=== PATIENT | male | born 1990 | race Caucasian/White ===

== ENCOUNTER 2017-12-18 13:48 | Emergency (ER) | payer SELFPAY ==
[~2017-12-18] VITALS: Ht 180.3 cm; Wt 65.8 kg
[2017-12-18] MEDS ORDERED: SEROQUEL100 MG PO (13:59)
[2017-12-18] MEDS ORDERED: GABAPENTIN300 MG PO (13:59)
== END 2017-12-18 14:05 | disposition home or self-care (01) ==
LOC: ED 13:48
DX: M25.572 Pain in left ankle and joints of left foot (principal); F17.200 Nicotine dependence, unspecified, uncomplicated; X50.9XXA Other and unspecified overexertion or strenuous movements or postures, initial encounter

== ENCOUNTER 2018-01-16 18:15 | Emergency (ER) | payer OTHER ==
[~2018-01-16] VITALS: Ht 180.3 cm; Wt 65.8 kg
[~2018-01-16 18:15] MED LIST: GABAPENTIN300 MG PO; SEROQUEL100 MG PO
[2018-01-16] MEDS ORDERED: VENTOLIN HFA18 GM INH (18:32)
[2018-01-16] MEDS ORDERED: ADDERALL 30 MG30 MG PO (18:35)
== END 2018-01-16 21:46 | disposition home or self-care (01) ==
LOC: ED 18:15
DX: F41.9 Anxiety disorder, unspecified (principal); R06.4 Hyperventilation; F32.9 Major depressive disorder, single episode, unspecified; R45.851 Suicidal ideations; J45.909 Unspecified asthma, uncomplicated; F31.9 Bipolar disorder, unspecified; F17.200 Nicotine dependence, unspecified, uncomplicated; Z88.0 Allergy status to penicillin; Z79.899 Other long term (current) drug therapy
CPT/HCPCS: 80053; 85025; 96361; 96374; 96376; 99283; J2060; J7030

== ENCOUNTER 2018-06-06 16:56 | Emergency (ER) | payer OTHER ==
[~2018-06-06] VITALS: Ht 180.3 cm; Wt 65.8 kg
[~2018-06-06 16:56] MED LIST changes: +ADDERALL 30 MG30 MG PO; +VENTOLIN HFA18 GM INH
[2018-06-06] MEDS ORDERED: RANITIDINE HCL300 MG PO (17:14)
[2018-06-06] MEDS ORDERED: LATUDA60 MG PO (17:14)
[2018-06-06] MEDS ORDERED: LAMOTRIGINE100 MG PO (17:14)
[2018-06-06] MEDS ORDERED: CLONIDINE HCL0.1 MG PO (17:14)
[2018-06-06] MEDS ORDERED: FLOVENT HFA12 G1 INH (17:15)
[2018-06-06] MEDS ORDERED: FLUTICASONE PRO16 GM NAS (17:15)
== END 2018-06-06 19:17 | disposition short-term general hospital (02) ==
LOC: ED 16:56
DX: Z00.8 Encounter for other general examination (principal); F17.200 Nicotine dependence, unspecified, uncomplicated; Z88.0 Allergy status to penicillin; Z79.899 Other long term (current) drug therapy
CPT/HCPCS: 80053; 80176; 81001; 84443; 85025; 99284; G0480

== ENCOUNTER 2018-11-21 18:01 | Inpatient (IN) | payer OTHER ==
[~2018-11-21] VITALS: Ht 180.3 cm; Wt 68.0 kg
[~2018-11-21 18:01] MED LIST changes: +CLONIDINE HCL0.1 MG PO; +FLOVENT HFA12 G1 INH; +FLUTICASONE PRO16 GM NAS; +LAMOTRIGINE100 MG PO; +LATUDA60 MG PO; +RANITIDINE HCL300 MG PO
--- OUTSIDE RECORDS SUMMARY | 2018-11-21 18:04 | XMS ---
PreManage Notification: JÚNIOR MATTHEW Security Oxygen System Tester Events No recent Security Events currently on file CRITERIA MET - VANEP CARE PROVIDERS Paulo Pastor Current PHONE: Unknown Teressa has no Care Guidelines for this patient. ELauro VISIT COUNT (12 MO.) 4 [facility] TOTAL 4 NOTE: Visits indicate total known visits. ED/UCC VISIT TRACKING (12 MO.) 11/21/2018 18:02 [facility] [place] TYPE: Emergency COMPLAINT: - RIGHT KNEE PAIN 06/06/2018 16:57 [facility] [place] TYPE: Emergency COMPLAINT: - MEDICAL CLEARANCE DIAGNOSES: - Nicotine dependence, unspecified, uncomplicated - Encounter for other general examination - Other superintendent container terminal (current) drug therapy - Allergy status to penicillin 01/16/2018 18:15 [facility] [place] TYPE: Emergency COMPLAINT: - SOB DIAGNOSES: - Hyperventilation - Other superintendent container terminal (current) drug therapy - Suicidal ideations - Nicotine dependence, unspecified, uncomplicated - Shortness of breath - Major depressive disorder, single episode, unspecified - Unspecified asthma, uncomplicated - Anxiety disorder, unspecified - Bipolar disorder, unspecified - Allergy status to penicillin 12/18/2017 13:[address] [facility] [place] TYPE: Emergency COMPLAINT: - L ANKLE PAIN/INJURY/MSE TO CLINIC DIAGNOSES: - Other and unspecified overexertion or strenuous movements or postures, initial encounter - Nicotine dependence, unspecified, uncomplicated - OTHER AND UNSPECIFIED OVREXRTN OR STRNOUS MOVE/PST - Pain in left ankle and joints of left foot INPATIENT VISIT TRACKING (12 MO.) No inpatient visits to display in this time frame [email or web address]
--- NOTE | 2018-11-21 22:00 | NUR ---
PT ARRIVED TO THE FLOOR, AOX4, APPROPRIATE, VISITING WITH STAFF, VSS, NO C/O SOB/CP, ON RA, PT RATES PAIN 3/10 AT THIS TIME STATING "IT'S NOT BAD", PT'S LS MOSTLY CLEAR ON RIGHT SIDE, SOME WHEEZES NOTED THROUGHOUT LEFT SIDE, PT HAS COURSE NONPRODUCTIVE COUGH, PT ENCOURAGED TO CDB, REDNESS NOTED ON PT'S RIGHT KNEE, WARMTH NOTED WELL, PT STATES PAIN IS LOCATED MOSTLY ON LATERAL SIDE OF RIGHT KNEE, REDNESS NOTED ABOVE KNEE FROM MID THIGH TO LOWER WINTERS, REDDENED AREA ALSO NOTED ON BACK OF PT'S LEFT ANKLE WELL, PT GIVEN PRN TORADOL PER EMAR WELL SCHEDULED MEDS, TOLERATED WELL, NO REQUESTS AT THIS TIME, CALL LIGHT WITHIN REACH. FALL PRECAUTIONS IN PLACE. IV FLUIDS INFUSING PER EMAR WNL.
--- NOTE | 2018-11-21 23:00 | NUR ---
PT RESTING IN BED, NO REQUESTS AT THIS TIME, CALL LIGHT WITHIN REACH, IV FLUIDS INFUSING PER EMAR WNL, PT STATES HE FEELS WARM, T: 98.6, TEMP DECREASED IN ROOM, CALL LIGHT WITHIN REACH. FALL PRECAUTIONS IN PLACE.
--- NOTE | 2018-11-22 01:11 | NUR ---
PT RESTING IN BED, PT DENIES PAIN, STATES HE HAS BEEN SLEEPING, IV FLUIDS INFUSING PER EMAR WNL, DENIES NEEDS AT THIS TIME, CALL LIGHT WITHIN REACH. FALL PRECAUTIONS IN PLACE.
--- NOTE | 2018-11-22 04:11 | NUR ---
SCHEDULED MEDS ADMINISTERED, PT GIVEN WARM BLANKET PER PT'S REQUEST, NO FURTHER NEEDS AT THIS TIME, DENIES PAIN, DENIES NAUSEA, CALL LIGHT WITHIN REACH, FALL PRECAUTIONS IN PLACE.
--- NOTE | 2018-11-22 04:41 | NUR ---
CALL LIGHT ANSWERED, PT C/O 12/11 PAIN STATING "IT COMES AND GOES" PT DESCRIBES IT THROBBING IN HIS RIGHT KNEE AND OTHER JOINTS, PT GIVEN PRN PAIN MEDICATION PER EMAR, PT ALSO GIVEN WARM BLANKET PER REQUEST. PT C/O SOB AND DIFFICULTY WITH TAKING A DEEP BREATH, REQUESTING A PRN NEB TX, RT CALLED, ON THE WAY TO DELIVER NEB TX, PT'S LS WHEEZY THROUGHOUT ESPECIALLY LEFT SIDE/BASES. RR NORMAL, NONPRODUCTIVE COUGH NOTED. PT DENIES FURTHER NEEDS, IV FLUIDS INFUSING PER EMAR WNL, CALL LIGHT WITHIN REACH.
--- NOTE | 2018-11-22 05:12 | NUR ---
PT AOX4 THIS SHIFT, APPROPRIATE, PT'S VSS, AFEBRILE, NO C/O NAUSEA THIS SHIFT, PT WAS GIVEN PRN TORADOL X2 THIS SHIFT FOR PAIN RELATED TO RIGHT KNEE, REDNESS REMAINS UNCHANGED WELL WARMTH, PT CALLS APPROPRIATLEY, IV FLUIDS INFUSING PER EMAR WNL, SBA,
--- NOTE | 2018-11-22 06:12 | NUR ---
VITALS AND I&OS DONE AND CHARTED. GARBAGES EMPTIED. BEDSIDE TABLE AND CALL LIGHT IN REACH. FRESH ICE WATER GIVEN.
--- NOTE | 2018-11-22 06:17 | NUR ---
PT RESTING IN BED, EYES CLOSED, BREATHS EVEN, IV FLUIDS INFUSING PER EMAR WNL, NO REQUESTS AT THIS TIME, CALL LIGHT WITHIN REACH.
--- NOTE | 2018-11-22 07:20 | NUR ---
PT RESTING SUPINE IN BED, EYES CLOSED AND RESPIRATIONS EVEN AND UNLABORED. CALL LIGHT AND H20 IN REACH. BEDSIDE REPORT RECEIVED FROM SIMEON FAIRBANKS.
[2018-11-22] MEDS ORDERED: DEXTROAMP-AMPHE30 MG PO (09:00)
[2018-11-22] MEDS ORDERED: LAMOTRIGINE150 MG PO (09:02)
[2018-11-22] MEDS ORDERED: QUETIAPINE FUM300 MG PO (09:14)
[2018-11-22] MEDS ORDERED: MULTI VITAMIN1 EACH PO (10:00)
--- NOTE | 2018-11-22 10:00 | NUR ---
MED REC COMPLETE
--- NOTE | 2018-11-22 12:15 | NUR ---
PT RESTING IN FOWLERS POSITION IN BED, RECEIVING NEB TX FROM RT. PT DENIES PAIN OR NEEDS AT THIS TIME. CALL LIGHT, LUNCH TRAY AND H2O IN REACH. FAMILY AT BEDSIDE.
--- NOTE | 2018-11-22 15:05 | NUR ---
PT RESTING SUPINE IN BED, WATCHING TV AND VISITING WITH FAMILY. CALL LIGHT AND H20 IN REACH. ASSESSMENT COMPLETED. PT [id number] WITH 7 UP AND FRESH ICE TO RIGHT KNEE PER GENE GUZMÁN. PT DENIES FURTHER NEEDS. SWELLING AND REDDNESS TO RIGHT KNEE APPEARS TO BE DECREASED FROM AM ASSESSMENT AND PT STATES HE IS FEELING BETTER OVER ALL. CMS INTACT TO RIGHT FOOT.
--- NOTE | 2018-11-22 15:59 | NUR ---
PT IS EXPECTING TO RETURN HOME UPON DC.
--- NOTE | 2018-11-22 18:54 | NUR ---
PATIENT WAS ABLE TO SHOWER ON HIS OWN THIS DRIVER JUST SET UP HIS SHOWER. HIS MOM BRAUGHT IN SOME CLOTHES TO WEAR. A WARM BLANKET WAS PROVIDED.
--- NOTE | 2018-11-22 19:10 | NUR ---
SHIFT REPORT RECEIVED FROM DAYSHIFT SIMEON MICHELE. PT RESTING IN BED AND PLAYING ON COMPUTER, NO SIGNS OF DISTRESS NOTED. BOARD UPDATED AND PT DENIES FURTHER NEEDS. CALL LIGHT IN REACH.
--- NOTE | 2018-11-22 19:35 | NUR ---
SCHEDULED VANCO INFUSING PER MD ORDERS. IV SITE WNL, FLUSHES WELL, BLOOD RETURN NOTED. EDUCATION FOR VANCO INFILTRATION PROVIDED, PT VERBALIZES UNDERSTANDING. CALL LIGHT IN REACH. RT IN ROOM WITH PT.
--- NOTE | 2018-11-22 21:00 | NUR ---
ASSESSMENT COMPLETE. SCHEDULED MEDS GIVEN WITH SCHEDULED IV ABX (SEE EMAR). PT A/OX4, RATES PAIN 1/10 WHEN COUGHING, DESCRIBES TOLERABLE. IV SITE PATENT, BLOOD RETURN NOTED. PT DENIES NEEDS, CALL LIGHT IN REACH.
--- NOTE | 2018-11-22 21:03 | NUR ---
VITALS AND I&OS DONE AND CHARTED. FRESH ICE WATER GIVEN. BEDSIDE TABLE AND CALL LIGHT IN REACH. PT NEEDS NOTHING MORE AT THIS TIME.
--- NOTE | 2018-11-22 22:30 | NUR ---
SCHEDULED IV ABX INFUSING (SEE EMAR). IV SITE WNL, PATENT WITH NOTED BLOOD RETURN. PT RESTING IN BED, RR WNL. NO SIGNS OF DISTRESS NOTED. CALL LIGHT IN REACH.
--- NOTE | 2018-11-22 23:30 | NUR ---
IV ABX INFUSION COMPLETE, PT SALINE LOCKED AT THIS TIME. PT RESTING IN BED, EYES CLOSED, RR WNL. CALL LIGHT IN REACH.
--- NOTE | 2018-11-23 01:35 | NUR ---
PT RESTING IN BED, RR WNL. NO DISTRESS NOTED. EYES CLOSED. CALL LIGHT IN REACH.
--- NOTE | 2018-11-23 02:22 | NUR ---
NOTIFIED BY HOTEL YARDPERSON DECEMBER OF ORAL TEMP OF 100.0. PT REPORTS "FEELING WARM". EXCESS BLANKETS REMOVED, PRN TYLENOL GIVEN. PT DOES NOT WANT TO REMOVE SWEATER/SWEAT PANTS AT THIS TIME. PT'S TEMP NOT ABOVE MD PARAMTERS, WILL MONITOR AND NOTIFY IF NEEDED. NO FURTHER NEEDS, CALL LIGHT IN REACH.
--- NOTE | 2018-11-23 02:36 | NUR ---
VITALS AND I&OS DONE AND CHARTED. FRESH ICE WATER GIVEN. INFORMED HIS RN LARA OF TEMP. BEDSIDE TABLE AND CALL LIGHT IN REACH.
--- NOTE | 2018-11-23 03:30 | NUR ---
ASSESSMENT COMPLETE, NO NEW CONCERNS. PT A/OX4, DENIES PAIN. ORAL TEMP RESULT OF 98.7. SCHEDULED IV VANCO INFUSING, SITE WNL. PT DENIES FURTHER NEEDS, CALL LIGHT IN REACH.
--- NOTE | 2018-11-23 04:48 | NUR ---
PT A/OX3, PAIN WELL CONTROLLED WITH PRN TYLENOL. VSS, PT ON 2LNC, DENIES SOB. PT ALEN LIFT AT BASELINE. TURN Q2H AND PRN, REDDENED COCCYX, BLANCHABLE. PT INCONTINENT, REGULAR SOFT DIET. NO NAUSEA THIS SHIFT. PT IS A FEEDER. PT IS VERY [place]IN[place] AND [place] TRIBES AND SLOW TO SPEAK. PT REQUESTED EMESIS BAG MULTIPLE TIMES TO SPIT CLEAR SPUTUM. DOES NOT USE CALL LIGHT, YELLS OUT FOR ASSISTANCE.
--- NOTE | 2018-11-23 05:20 | NUR ---
SPOKE TO EMMIE IN TELEPHARMACY REGARDING PT'S AZITHROMYCIN INFUSION. THIS RN NOTICED THAT A PORTION OF THE 2100 SCHEDULED INFUSION DID NOT FULLY INFUSE. PER TELEPHARMACY, AZITHROMYCIN IS STABLE FOR 24 HRS AND THERE ARE NO CONTRAINDICTIONS TO COMPLETE THE REMAINING INFUSION PER NOR ARE THERE CONTRAINDICTIONS BETWEEN THE TIME FRAME OF THE REMAINING INFUSION AND THE NEXT SCHEDULED INFUSION. DR HENDERSON MADE AWARE PER PERSONAL MESSAGE.
--- NOTE | 2018-11-23 06:17 | NUR ---
VITALS AND I&OS DONE AND CHARTED. FRESH ICE WATER GIVEN. BEDSIDE TABLE AND CALL LIGHT IN REACH.
--- NOTE | 2018-11-23 07:10 | NUR ---
PT RESTING ON LEFT LATERAL SIDE IN BED, EYES CLOSED AND RESPIRATIONS EVEN AND UNLABORED. CALL LIGHT AND H2O IN REACH. PT APPEARS TO BE SLEEPING COMFORTABLY. BEDSIDE REPORT RECEIVED FROM SIMEON BERMUDEZ.
--- NOTE | 2018-11-23 07:21 | NUR ---
SPOKE TO AIDAN IN PHARMACY REGARDING PT'S VANCO INFUSION. APPROX 50-55MLS OF THE 0 VANCO DOSE DID NOT INFUSE. PER AIDAN, PT RECEIVED APPROX 800 OF THE 1,000 MG. PER AIDAN, SHE CAN TAKE THIS INTO ACCOUNT FOR THE PT'S SCHEDULED [address] HENDERSON MADE AWARE, NO NEW NEW ORDERS.
--- NOTE | 2018-11-23 09:59 | NUR ---
PATIENT RESTING IN BED. MOM IN ROOM. VITAL SIGNS AND I&O DONE. CALL LIGHT WITHIN REACH. NO OTHER NEEDS AT THIS TIME
--- NOTE | 2018-11-23 11:55 | NUR ---
PT SITTING UP IN BED VISITING WITH FAMILY. PT STATES PAIN IS TOLERABLE TO RIGHT KNEE. PT REQUESTED AND RECEIVED 7 UP. PT DENIES FURTHER NEEDS OR CONCERNS AND APPEARS TO BE IN NO ACUTE DISTRESS. CALL LIGHT AND H20 IN REACH.
--- NOTE | 2018-11-23 13:43 | NUR ---
PATIENT IN BED WATCHING TV. MOM IN ROOM. VITAL SIGNS AND I&O DONE. CALL LIGHT WITHIN REACH. NO OTHER NEEDS AT THIS TIME
--- NOTE | 2018-11-23 16:25 | NUR ---
PT RESTING SUPINE IN BED WITH EYES CLOSED AND RESPIRATIONS EVEN AND UNLABORED. PT ALERT TO NOISE AND DENIES NEEDS/CONCERNS AND STATES HE IS COMFORTABLE. CALL LIGHT AND H20 IN REACH.
--- NOTE | 2018-11-23 17:25 | NUR ---
PATIENT RESTING IN BED. VITAL SIGNS AND I&O DONE. ICE WATER GIVEN. CALL LIGHT WITHIN REACH. NO OTHE NEEDS AT THIS TIME
--- NOTE | 2018-11-23 18:22 | NUR ---
PATIENT IN BED. IV COVERED. SETS UP BATHROOM FOR SHOWER. CALL LIGHT WITHIN REACH. NO OTHER NEEDS AT THIS TIME
--- NOTE | 2018-11-23 19:20 | NUR ---
SHIFT REPORT RECEIVED FROM ILIANASDEFE MICHELE AT BEDSIDE. PT AWAKE AND ON THE COMPUTER. RIGHT UPPER SIDE RAIL RAISED PER PT REQUEST. PT DENIES FURTHER NEEDS, CALL LIGHT IN REACH.
--- NOTE | 2018-11-23 20:17 | NUR ---
ASSESSMENT COMPLETE, MEDICATIONS GIVEN (SEE EMAR). PT A/OX4, RATES PAIN /10. PRN OXY ADMINISTERED BY PHOTO LAB MANAGER. VSS, FAN IN PLACE PER PT REQUEST. PT REPORTS INTERMITTENT CHILLS, WILL MONITOR. SCHEDULED VANCO INFUSING PER MD ORDERS, SITE WNL WITH BLOOD RETURN. PT DENIES FURTHER NEEDS, ROOM TIDED. CALL LIGHT IN REACH.
--- NOTE | 2018-11-23 21:55 | NUR ---
BB SHOT PACKERSIMEON OLIVA IN ROOM TO ADMINISTERED SCHEDULED IV ABX (SEE EMAR).
--- NOTE | 2018-11-23 22:45 | NUR ---
SCHEDULED IV ABX INFUSING PER MD ORDERS, SITE WNL. ORAL TEMP RESULT OF 98.3. PT RESTING IN BED, EYES CLOSED, RR WNL. NO NEEDS AT THIS TIME, CALL LIGHT IN REACH.
--- NOTE | 2018-11-24 00:10 | NUR ---
PT SALINE LOCKED, RSTING IN BED. RR WNL, DENIES NEEDS. CALL LIGHT IN REACH.
--- NOTE | 2018-11-24 01:28 | NUR ---
VITALS AND I&OS DONE AND CHARTED. BEDSIDE TABLE AND CALL LIGHT IN REACH. PT NEEDS NOTHING AT THIS TIME.
--- NOTE | 2018-11-24 04:05 | NUR ---
SCHEDULED VANCO INFUSING PER MD ORDERS, SITE WNL. BLOOD RETURN NOTED. PT RESTING IN BED, RR WNL, NO DISTRESS NOTED. CALL LIGHT IN REACH.
--- NOTE | 2018-11-24 05:07 | NUR ---
PT A/O, PAIN CONTROLLED WITH PRN TORADOL, TYLENOL, AND OXYCODONE. PT USES CALL LIGHT APPROPERIATELY. SLIGHT ELEVATED TEMP AT BEGINNING OF SHIFT, SINCE RESOLVED. PT SBA. SCHEDULED IV ABX, OTHERWISE SALINE LOCKED. PT ON REGULAR DIET, BT ACTIVE, NO NAUSEA. VOIDING QS.
--- NOTE | 2018-11-24 06:09 | NUR ---
ASSESSMENT COMPLETE. VS AND I&O'S COLLECTED AND STABLE. NO NEW CONCERNS. PT SL, IV SITE WNL. PT REPORTS 1/10 PAIN, DENIES NEED FOR PAIN MEDICATION. A/O, RESTING IN BED. CALL LIGHT IN REACH.
--- NOTE | 2018-11-24 07:06 | NUR ---
PT RESTING ON LEFT LATERAL SIDE IN BED, RESPIRATIONS EVEN AND UNLABORED AT 14. CALL LIGHT AND H20 IN REACH. PT APPEARS TO BE SLEEPING COMFORTABLY. BEDSIDE REPORT RECEIVED FROM SIMEON BERMUDEZ.
--- NOTE | 2018-11-24 08:49 | NUR ---
PATIENT RESTING IN BED, STATES HIS LEG IS HURTING HIM AND HIS PAIN LEVEL IS A 3 OUT OF 10 BUT HE WOULD NOT LIKE PAIN MEDICATION AT THIS TIME. AM CARE SET UP IN BATHROOM FOR LATER USE AT PATIENTS REQUEST. PATIENT CALL LIGHT IN REACH. NO OTHER NEEDS AT THIS TIME.
--- NOTE | 2018-11-24 09:51 | NUR ---
PT RESTING ON RIGHT LATERAL SIDE ON COUCH, REPORTS PAIN IS TOLERABLE TO RIGHT KNEE. ASSESSMENT COMPLETED, REDNESS APPEARS TO BE GREATLY DECREASED FROM YESTERDAY AND SWELLING IS MINIMAL AT 1+ NONPITTING, SOME WARMTH STILL PRESENT. CMS TO DISTAL RLE INTACT. LSC IN UPPER LUNG BARRON SLIGHT CRACKLES NOTED TO LEFT LOWER LOBE BUT LUNGS OTHERWISE SOUND CLEAR. PT DENIES SOB, STILL HAS OCCASIONAL COUGH. CALL LIGHT AND FRESH ICE WATER IN REACH. AM MED ADMINISTERED. PT DENIES NEEDS. AMBULATES IN ROOM INDEPENDANTLY AND DENIES DIZZINESS OR SOB WITH AMBULATION.
--- NOTE | 2018-11-24 10:32 | NUR ---
PT REPORTS 4/10 PAIN TO RIGHT KNEE. PRN IV TORADOL AND PO TYLENOL ADMINISTERED. CALL LIGHT AND H20 IN REACH. PT DENIES FURTHER NEEDS OR CONCERNS.
--- NOTE | 2018-11-24 12:20 | NUR ---
PT DECLINED SHOWER AT THIS TIME. PT STATED THAT HE BUSHED HIS TEETH AND DIDNT WANT ANY OTHER CARE AT THIS MOMENT.
[2018-11-24] MEDS ORDERED: CEFPODOXIME PR200 MG PO (12:32)
[2018-11-24] MEDS ORDERED: NAPROXEN500 MG PO (12:33)
[2018-11-24] MEDS ORDERED: DOXYCYCLINE MO100 MG PO (12:33)
[2018-11-24] MEDS ORDERED: NICOTINE GUM2 MG MM (12:34)
== END 2018-11-24 15:05 | disposition home or self-care (01) | DRG 871 ==
LOC: ED 18:01 → MS 21:05
PROVIDERS: ADMIT Internal Medicine
PROC: 0S9C3ZX Drainage of Right Knee Joint, Percutaneous Approach, Diagnostic (ICD-10-PCS; principal; 2018-11-21)
DX: A41.01 Sepsis due to Methicillin susceptible Staphylococcus aureus (principal); J15.211 Pneumonia due to Methicillin susceptible Staphylococcus aureus; J13 Pneumonia due to Streptococcus pneumoniae; L03.115 Cellulitis of right lower limb; M71.161 Other infective bursitis, right knee; F17.210 Nicotine dependence, cigarettes, uncomplicated; J45.40 Moderate persistent asthma, uncomplicated; F90.9 Attention-deficit hyperactivity disorder, unspecified type; F31.9 Bipolar disorder, unspecified; Z88.0 Allergy status to penicillin; Z79.51 Long term (current) use of inhaled steroids; Z79.899 Other long term (current) drug therapy
CPT/HCPCS: 20610; 36415; 71045; 73560; 80048; 80053; 80202; 82945; 83605; 85025; 85810; 86431; 87502; 89051; 89060; 94640; 94667; 94668; 99284-25; 99406; J0456; J0696; J1170; J1650; J1885; J2405; J3370; J7030; J7060; J7120

== ENCOUNTER 2019-12-05 09:45 | Emergency (ER) | payer OTHER ==
[~2019-12-05] VITALS: Ht 180.3 cm; Wt 68.0 kg
[~2019-12-05 09:45] MED LIST changes: +CEFPODOXIME PR200 MG PO; +DEXTROAMP-AMPHE30 MG PO; +DOXYCYCLINE MO100 MG PO; +LAMOTRIGINE150 MG PO; +MULTI VITAMIN1 EACH PO; +NAPROXEN500 MG PO; +NICOTINE GUM2 MG MM; +QUETIAPINE FUM300 MG PO
--- OUTSIDE RECORDS SUMMARY | 2019-12-05 09:48 | XMS ---
PreManage Notification: JÚNIOR MATTHEW Security Commercial Reporter Events No recent Security Events currently on file CRITERIA MET - History of Sepsis Dx - PDMP CARE PROVIDERS There are no care providers on record at this time. Teressa has no Care Guidelines for this patient. ELauro VISIT COUNT (12 MO.) 1 [facility] TOTAL 1 NOTE: Visits indicate total known visits. ED/UCC VISIT TRACKING (12 MO.) 12/05/2019 09:45 [facility] [place] TYPE: Emergency COMPLAINT: - MEDICAL CLEARANCE INPATIENT VISIT TRACKING (12 MO.) No inpatient visits to display in this time frame [email or web address]
[2019-12-05] MEDS ORDERED: VENTOLIN HFA18 GM INH (10:57)
[2019-12-05] MEDS ORDERED: ATIVAN1 MG PO (11:35)
== END 2019-12-05 11:55 | disposition home or self-care (01) ==
LOC: ED 09:45
DX: S63.502A Unspecified sprain of left wrist, initial encounter (principal); F41.0 Panic disorder [episodic paroxysmal anxiety]; J45.909 Unspecified asthma, uncomplicated; F90.9 Attention-deficit hyperactivity disorder, unspecified type; F17.200 Nicotine dependence, unspecified, uncomplicated; Z79.899 Other long term (current) drug therapy; W18.30XA Fall on same level, unspecified, initial encounter
CPT/HCPCS: 73110; 99283

== ENCOUNTER 2020-06-03 00:45 | Emergency (ER) | payer OTHER ==
[~2020-06-03] VITALS: Ht 180.3 cm; Wt 68.0 kg
[~2020-06-03 00:45] MED LIST changes: +ATIVAN1 MG PO
--- OUTSIDE RECORDS SUMMARY | 2020-06-03 00:48 | XMS ---
PreManage Notification: JÚNIOR MATTHEW Security Lock Fitter Events No recent Security Events currently on file CRITERIA MET - [facility] - Has Care Guidelines - History of Sepsis Dx - PDMP CARE PROVIDERS There are no care providers on record at this time. Guidelines Source: [email or web address] - [place] Guidelines Date: 02/11/2020 Care Coordination: Member is currently engaged in [email or web address] services. If Mental Health services are needed, please contact: [facility] [phone] [place]/ [place] [phone] Crisis Line [phone] E.D. VISIT COUNT (12 MO.) [address] TOTAL 3 NOTE: Visits indicate total known visits. ED/UCC VISIT TRACKING (12 MO.) 06/03/2020 00:45 [facility] [place] TYPE: Emergency COMPLAINT: - DIFFICULTY BREATHING 01/02/2020 03:20 [facility] TYPE: Emergency DIAGNOSES: - Rib Pain - Nausea with vomiting, unspecified - Withdrawal - withdrawl - Other chest pain - Anxiety disorder, unspecified - Other psychoactive substance use, unspecified, uncomplicated 12/05/2019 09:45 [facility] TYPE: Emergency COMPLAINT: - MEDICAL CLEARANCE DIAGNOSES: - Nicotine dependence, unspecified, uncomplicated - Attention-deficit hyperactivity disorder, unspecified type - Pain in left wrist - Panic disorder [episodic paroxysmal anxiety] - Unspecified sprain of left wrist, initial encounter - Other intermediate (current) drug therapy - Unspecified asthma, uncomplicated - Fall on same level, unspecified, initial encounter INPATIENT VISIT TRACKING (12 MO.) No inpatient visits to display in this time frame [email or web address]
== END 2020-06-03 01:13 | disposition home or self-care (01) ==
LOC: ED 00:45
DX: J45.909 Unspecified asthma, uncomplicated (principal); F41.0 Panic disorder [episodic paroxysmal anxiety]; F31.9 Bipolar disorder, unspecified; F90.9 Attention-deficit hyperactivity disorder, unspecified type; F17.200 Nicotine dependence, unspecified, uncomplicated; Z88.0 Allergy status to penicillin; Z79.899 Other long term (current) drug therapy
CPT/HCPCS: 99284

== ENCOUNTER 2021-11-05 20:55 | Emergency (ER) | payer OTHER ==
[~2021-11-05] VITALS: Ht 180.3 cm; Wt 70.3 kg
[2021-11-05] MEDS ORDERED: NAPROSYN500 MG PO (21:12)
[2021-11-05] MEDS ORDERED: CLEOCIN HCL300 MG PO (21:12)
== END 2021-11-05 21:24 | disposition home or self-care (01) ==
LOC: ED 20:55
DX: K02.9 Dental caries, unspecified (principal); J45.909 Unspecified asthma, uncomplicated; F17.200 Nicotine dependence, unspecified, uncomplicated; Z88.0 Allergy status to penicillin; Z79.899 Other long term (current) drug therapy
CPT/HCPCS: 99282